=== PATIENT | male | born 1980 | race Caucasian/White ===

== ENCOUNTER 2017-02-16 06:45 | Emergency (ER) | payer OTHER ==
[~2017-02-16] VITALS: Ht 167.6 cm; Wt 65.8 kg
[~2017-02-16 06:45] MED LIST: CIPR250T2 PO; NO HOME MEDS; PERC7.5T12 PO
[2017-02-16 06:50] VITALS: BP 142/91
[2017-02-16] MEDS ORDERED: IBUPROFEN 800 MG TAB PO ONE (07:15)
[2017-02-16] MEDS ORDERED: PERC5TAB6 PO ×2 (07:30→07:32)
--- NOTE | 2017-02-16 08:00 | REP ---
Right shoulder three views : There is no fracture or dislocation. Mineralization and joint spaces are normal. There are no calcifications or foreign bodies. Impression: Negative right shoulder . Signed by Rodrick Morel MD 02/16/2017 07:52 A
== END 2017-02-16 08:00 | disposition home or self-care (01) ==
LOC: M ED 07:50
DX: S43.421A Sprain of right rotator cuff capsule, initial encounter (principal); X58.XXXA Exposure to other specified factors, initial encounter; Y92.89 Other specified places as the place of occurrence of the external cause; Y93.89 Activity, other specified; Y99.1 Military activity

== ENCOUNTER → 2018-01-17 | Outpatient (REF) | payer OTHER ==
[2018-01-17 12:53] LABS: HEMOGLOBIN 16.1 g/dl (14.0-18.0); MEAN CORPUSCULAR HEMOGLOBIN 30.9 pg (27.0-33.0); MEAN CORPUSCULAR VOLUME 88.3 fl (80.0-96.0); PLATELET COUNT, AUTOMATED 290 10^3/uL (150-450); RED BLOOD COUNT 5.21 10^6/uL (4.30-6.10); RED CELL DISTRIBUTION WIDTH 13.7 % (11.5-14.5); WHITE BLOOD COUNT 5.6 10^3/uL (4.0-10.0)
[2018-01-17 13:53] LABS: C REACTIVE PROTEIN QUANTITATIV < 0.30 MG/DL (0.00-0.30); RHEUMATOID FACTOR QUANT < 10.0 IU/ML (0-15.0)
[2018-01-17 13:53] LABS: URIC ACID 4.3 MG/DL (3.5-7.2)
[2018-01-17 18:59] LABS: ERYTHROCYTE SEDIMENTATION RATE 5 mm/hr (0-15)
[2018-01-18 14:14] LABS: ANTINUCLEAR ANTIBODIES DIRECT Negative (Negative)
== END ==
LOC: M LABDRAW1 12:02
DX: M79.641 Pain in right hand (principal)
CPT/HCPCS: 84550

== ENCOUNTER → 2018-02-08 | Outpatient (REF) | payer OTHER ==
[2018-02-08 12:10] LABS: BASO % 0.5 % (0.0-1.0); EOS # 0.3 10^3/uL (0.0-0.50); EOS % 4.4 % (0.0-3.0); HEMATOCRIT 46.6 % (42.0-52.0); HEMOGLOBIN 15.9 g/dl (14.0-18.0); IMMATURE GRANULOCYTE % 0.3 % (0-3.0); LYMPH % 32.3 % (24.0-44.0); MEAN CORPUSCULAR HEMOGLOBIN 30.5 pg (27.0-33.0); MEAN CORPUSCULAR HGB CONC 34.1 g/dl (32.0-36.5); MEAN CORPUSCULAR VOLUME 89.3 fl (80.0-96.0); MONO # 0.6 10^3/uL (0.0-0.8); MONO % 8.9 % (0.0-5.0); NEUTROPHILS # 3.3 10^3/uL (1.8-7.7); NEUTROPHILS % 53.6 % (36.0-66.0); PLATELET COUNT, AUTOMATED 250 10^3/uL (150-450); RED BLOOD COUNT 5.22 10^6/uL (4.30-6.10); RED CELL DISTRIBUTION WIDTH 13.5 % (11.5-14.5); WHITE BLOOD COUNT 6.2 10^3/uL (4.0-10.0)
[2018-02-08 12:45] LABS: ALBUMIN 4.3 GM/DL (3.2-5.2); ALBUMIN/GLOBULIN RATIO 1.59 (1.00-1.93); ALKALINE PHOSPHATASE 75 U/L (45-117); ALT/SGPT 22 U/L (12-78); ANION GAP 6 MEQ/L (8-16); AST/SGOT 17 U/L (7-37); BILIRUBIN,TOTAL 0.4 MG/DL (0.2-1.0); BLOOD UREA NITROGEN 14 MG/DL (7-18); CALCIUM LEVEL 8.7 MG/DL (8.5-10.1); CARBON DIOXIDE LEVEL 26 MEQ/L (21-32); CHLORIDE LEVEL 108 MEQ/L (98-107); CHOLESTEROL LEVEL 232 MG/DL (<200); CHOLESTEROL RISK RATIO 6.628 (<5); CREATININE FOR GFR 0.86 MG/DL (0.70-1.30); GLOMERULAR FILTRATION RATE > 60.0 (>60); GLUCOSE, FASTING 83 MG/DL (70-100); HDL CHOLESTEROL 35 MG/DL (>40); LDL CHOLESTEROL 163.2 MG/DL (<100); NON-HDL-C 197 MG/DL; POTASSIUM SERUM 4.3 MEQ/L (3.5-5.1); SODIUM LEVEL 140 MEQ/L (136-145); TRIGLYCERIDES LEVEL 169 MG/DL (<150)
== END ==
LOC: M LABDRAW1 11:45
DX: Z00.00 Encounter for general adult medical examination without abnormal findings (principal)
CPT/HCPCS: 80053

== ENCOUNTER 2019-05-19 20:11 | Emergency (ER) | payer OTHER ==
[~2019-05-19] VITALS: Ht 167.6 cm; Wt 63.6 kg
[~2019-05-19 20:11] MED LIST changes: +PERC5TAB12 PO
[2019-05-19 20:12] VITALS: BP 118/71
--- NOTE | 2019-05-20 04:01 | REP ---
Clinical: Trauma. Injury. Technique: AP, lateral, bilateral oblique views of the right foot. 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 No acute fracture dislocation. Skeletal structures, joint spaces, and surrounding soft tissues are otherwise normal. Impression: No acute fracture or dislocation. Electronically Signed by Rikki Velasquez MD 05/20/2019 03:53 A
== END 2019-05-19 20:59 | disposition home or self-care (01) ==
LOC: M ED 20:11
DX: S90.31XA Contusion of right foot, initial encounter (principal); W23.0XXA Caught, crushed, jammed, or pinched between moving objects, initial encounter; Y92.099 Unspecified place in other non-institutional residence as the place of occurrence of the external cause; Y93.9 Activity, unspecified; Y99.9 Unspecified external cause status

== ENCOUNTER 2020-06-11 07:48 | Emergency (ER) | payer OTHER ==
[2020-06-11] MEDS ORDERED: TETRACAINE 0.5% OPHTH SOLN 4ML As Ordered ONE (10:31)
[2020-06-11] MEDS ORDERED: FLUORESCEIN OPHTH 1 MG STRIP As Ordered ONE (10:31)
[2020-06-11] MEDS ORDERED: ERYTHROMYCIN OPHTH OINT As Ordered ONE (10:49)
== END 2020-06-11 11:11 | disposition home or self-care (01) ==
LOC: M ED 07:48
DX: T15.01XA Foreign body in cornea, right eye, initial encounter (principal); X58.XXXA Exposure to other specified factors, initial encounter; Y92.524 Gas station as the place of occurrence of the external cause; Y93.89 Activity, other specified; Y99.1 Military activity

== ENCOUNTER 2020-09-03 21:48 | Emergency (ER) | payer OTHER ==
[~2020-09-03] VITALS: Ht 167.6 cm; Wt 70.0 kg
[2020-09-03 21:49] VITALS: BP 124/73
[2020-09-03] MEDS ORDERED: TETRACAINE 0.5% OPHTH SOLN 4ML OD ONE (22:30)
[2020-09-03] MEDS ORDERED: ERYTHROMYCIN OPHTH OINT OD ONE (22:45)
[2020-09-03] MEDS ORDERED: ONDANSETRON 4 MG ORAL DISINTEGRATING TAB PO ONE (22:45)
[2020-09-03] MEDS ORDERED: BOOSTRIX/ADACEL VACCINE (DIPHTH/PERTUSS/ACELL/TETANUS) 0.5ML SYR IM ONE (22:45)
== END 2020-09-03 23:11 | disposition home or self-care (01) ==
LOC: M ED 21:48
DX: T15.01XA Foreign body in cornea, right eye, initial encounter (principal); F17.200 Nicotine dependence, unspecified, uncomplicated; Y92.9 Unspecified place or not applicable; Y93.9 Activity, unspecified; Y99.9 Unspecified external cause status
CPT/HCPCS: 65220; 90471; 90715; 99283; Q0162

== ENCOUNTER 2021-04-24 08:07 | Emergency (ER) | payer OTHER ==
[~2021-04-24] VITALS: Ht 167.6 cm; Wt 69.4 kg
--- NOTE | 2021-04-24 09:03 | REP ---
INDICATION: head injury/neck pain. COMPARISON: None. TECHNIQUE: Helical scanning is acquired. 5 mm axial images were reformatted. Coronal MPR images were generated. FINDINGS: Bone window settings demonstrate an intact bony calvarium. There is no evidence of skull fracture or incidental bony calvarial lesion. There are poly sinusitis changes with mucosal thickening observed in the sphenoid and ethmoid sinuses bilaterally as well as the left maxillary sinus. No intraorbital abnormality is seen. On soft tissue window setting images; the lateral, third, and fourth ventricles are normal in size and position. Sierra-white differentiation pattern is normal above and below the tentorium. There are is no evidence of intracranial hemorrhage. No mass, edema, infarction, or midline shift is seen. No extra-axial fluid collection is appreciated. IMPRESSION: Mucosal changes in the paranasal sinuses consistent with poly sinusitis. Otherwise negative head CT without contrast. There is no evidence of skull fracture or intracranial injury.. <Electronically signed by Ras Villanueva > 04/24/21 0852
--- NOTE | 2021-04-24 09:06 | REP ---
INDICATION: head injury/neck pain. COMPARISON: None. TECHNIQUE: Helical scanning is acquired and overlapping 2 mm high resolution axial images were generated and reviewed at bone and soft tissue window settings. Coronal and sagittal multiplanar re-formations images are generated. FINDINGS: There is no evidence of cervical spine element fracture. No skull base fracture is seen. Cervical vertebral body heights are preserved. Alignment is normal. Facet joints are normally aligned bilaterally at each cervical level on multiplanar re-formations images. There is no evidence of intraspinal or paraspinal hematoma. No extra vertebral abnormality is seen. There are osteoarthritic facet changes bilaterally. On the right these are most pronounced at C2-3 and on the left at C5-6. There are minimal degenerative disc changes at C2-3 and C3-4. No spinal stenosis or neural foraminal narrowing is seen. IMPRESSION: Mild degenerative spondylosis changes as above. Otherwise negative CT study of the cervical spine. No traumatic abnormality seen.. <Electronically signed by Ras Villanueva > 04/24/21 0902
[2021-04-24] MEDS ORDERED: LIDO5DIS41 TOP (09:43)
[2021-04-24] MEDS ORDERED: CYCL5TAB PO (09:43)
[2021-04-24 09:53] VITALS: BP 120/81
--- NOTE | 2021-04-25 08:33 | ED PDOC ---
Post-Departure Follow-Up radiology report faxed to pamela Carpio Sarah MD Apr 25, 2021 08:33
== END 2021-04-24 09:57 | disposition home or self-care (01) ==
LOC: M ED 08:07
DX: S16.1XXA Strain of muscle, fascia and tendon at neck level, initial encounter (principal); W22.8XXA Striking against or struck by other objects, initial encounter; Y92.89 Other specified places as the place of occurrence of the external cause; Y99.0 Civilian activity done for income or pay; J32.9 Chronic sinusitis, unspecified; F17.210 Nicotine dependence, cigarettes, uncomplicated

== ENCOUNTER 2021-09-09 03:54 | Emergency (ER) | payer OTHER ==
[~2021-09-09] VITALS: Ht 167.6 cm; Wt 70.5 kg
[~2021-09-09 03:54] MED LIST changes: +CYCL5TAB PO; +LIDO5DIS41 TOP
--- OUTSIDE RECORDS SUMMARY | 2021-09-09 04:00 | CCD ---
Author Author [facility] Organization [facility] Address Unknown Phone Unavailable Support Name Relationship Address Phone [facility] Next Of Kin [address] [place] [address] [facility] [address] Next Of [place] [address] [place] [address] [facility] Next Of Kin [address] [place] [id number] [place] Next Of Kin [address] [place] [address] [place] [address] [place] [address] Unavailable Re-disclosure Warning The records that you are about to access may contain information from federally-assisted alcohol or drug abuse programs. If such information is present, then the following federally mandated warning applies: This information has been disclosed to you from records protected by federal confidentiality rules (42 CFR part 2). The federal rules prohibit you from making any further disclosure of this information unless further disclosure is expressly permitted by the written consent of the person to whom it pertains or as otherwise permitted by 42 CFR part 2. A general authorization for the release of medical or other information is NOT sufficient for this purpose. The Federal rules restrict any use of the information to criminally investigate or prosecute any alcohol or drug abuse patient.The records that you are about to access may contain highly sensitive health information, the redisclosure of which is protected by Article 27-F of the [facility] Public Health law. If you continue you may have access to information: Regarding HIV / AIDS; Provided by facilities licensed or operated by the [facility] Office of Mental Health; or Provided by the [facility] Office for People With Developmental Disabilities. If such information is present, then the following [facility] mandated warning applies: This information has been disclosed to you from confidential records which are protected by state law. State law prohibits you from making any further disclosure of this information without the specific written consent of the person to whom it pertains, or as otherwise permitted by law. Any unauthorized further disclosure in violation of state law may result in a fine or group home sentence or both. A general authorization for the release of medical or other information is NOT sufficient authorization for further disc losure. Family History Family Member Name Family Member Gender Family Member Status Date o f Status Description Data Source(s) Unknown Male Problem [facility] ([facility]) Immunizations Vaccine Date Status Description Data Source(s) COVID-19 VACCINE Moderna 03/17/2021 12:00:00 AM EDT completed [facility] Vaccine Series Complete: YESThis Data wa s Submitted to [facility] Via [employer]. COVID-19 VACCINE Moderna 02/17/2021 12:00:00 AM EDT completed [facility] Vaccine Series Complete: NOThis Data was Submitted to [facility] Via [employer]. Medications Medication Brand Name Start Date Product Form Dose Route Admi nistrative Instructions Pharmacy Instructions Status Indications Reaction Description Data Source(s) 0.3 % 09/14/2020 12:00:00 AM EST drops 5 INSTILL 1 DROP INTO THE RIGHT EYE FOUR TIMES A DAY DIRECTED ALTERNATE WITH POLYTRIM INSTILL 1 DROP INTO THE RIGHT EYE FOUR TIMES A DAY DIRECTED ALTERNATE WITH POLYTRIM SOLD: 09/14/2020 [facility] 10,000 unit- 1 mg/mL 09/07/2020 12:00:00 AM EDT drops 10 INSTILL 1 DROP INTO RIGHT EYE EVERY 2 HOURS DIRECTED ALTERNATE WITH OCUFLOX INSTILL 1 DROP INTO RIGHT EYE EVERY 2 HOURS DIRECTED ALTERNATE WITH OCUFLOX SOLD: 09/07/2020 [facility] 0.3 % 09/07/2020 12:00:00 AM EDT drops 5 INSTILL 1 DROP INTO RIGHT EYE EVERY 2 HOURS DIRECTED ALTERNATE WITH POLYTRIM INSTILL 1 DROP INTO RIGHT EYE EVERY 2 HOURS DIRECTED ALTERNATE WITH POLYTRIM SOLD: 09/07/2020 [facility] Insurance Providers Payer name Policy type / Coverage type Policy ID Covered libertarian ID Covered libertarian's relationship to cooney Policy Cooney Plan Information [facility] INSURANCE [facility] [id number] SP [id number] [facility] [id number] SP [id number] [facility] [id number] SP [id number] [facility] ACTIVE DUTY [id number] SP [id number] ANSI-Commercial [id number] [facility] Commercial [id number] Self [id number] [facility] Commercial [id number] Self [id number] ACTIVE DUTY [id number] SP [id number] [facility] Commercial [id number] Self [id number] N [employer]AVITHA -O/P [id number] 18 [id number] ACTIVE DUTY [id number] SP [id number] Problems, Conditions, and Diagnoses No Information Surgeries/Procedures No Information Results ID Date Data Source [id number] 08/21/2020 12:00:00 AM EDT [facility] Name Value Range Interpretation Code Description Data Sun rce(s) Supporting Document(s) SARS-CoV2 [facility] and reported by [facility]. Procedure Social History No Information
[2021-09-09 05:53] VITALS: BP 131/70
--- OUTSIDE RECORDS SUMMARY | 2021-09-09 07:30 | CCD ---
Author Author [facility] Organization [facility] Address Unknown Phone Unavailable Support Name Relationship Address Phone [facility] Next Of Kin [address] [place] [address] [facility] [address] Next [place] Kin [address] [place] [address] [facility] [address] Of [address] [place] [id number] [place] Next Of Kin [address] [place] [address] [place] [address] [address] [place] [address] Unavailable Re-disclosure Warning The records that you [...] is protected by Article 27-F of the [facility] Public Health law. If you continue you may have access to information: Regarding HIV / AIDS; Provided by facilities licensed or operated by the [facility] Office of Mental Health; or Provided by the [facility] Office for People With Developmental Disabilities. If such information is present, then the following [facility] mandated warning applies: This information has been [...] law may result in a fine or fpc sentence or both. A general authorization for [...] Complete: YESThis Data wa s Submitted to [facility] Via [address]. COVID-19 VACCINE Moderna 02/17/2021 12:00:00 AM EDT completed [facility] Vaccine Series Complete: NOThis Data was Submitted to [facility] Via [address]. Medications Medication Brand Name Start Date Product [...] type / Coverage type Policy ID Covered democrat ID Covered democrat's relationship to cooney Policy Cooney Plan Information [facility] INSURANCE [facility] [id number] SP [id number] [facility] [id number] SP [id number] [facility] [id number] SP [id number] [facility] ACTIVE DUTY [id number] SP [id number] ANSI-Commercial [id number] [facility] Commercial [id number] [facility] Commercial [id number] Self [id number] ACTIVE DUTY [id number] SP [id number] [facility] Commercial [id number] Self [id number] N REGIONAL CLAIMS KAVITHA -O/P [id number] 18 [id number] ACTIVE DUTY [id number] SP [id number] Problems, Conditions, and Diagnoses No Information Surgeries/Procedures No Information Results ID Date Data Source [id number] 08/21/2020 12:00:00 AM EDT [facility] Name Value Range Interpretation Code Description Data Sun rce(s) Supporting Document(s) [facility] and reported by [facility]. Procedure Social History No Information
== END 2021-09-09 07:18 | disposition left against medical advice (07) ==
LOC: M ED 03:54
DX: Z53.29 Procedure and treatment not carried out because of patient's decision for other reasons (principal)

== ENCOUNTER → 2021-09-15 | Outpatient (REF) | payer OTHER | LOC: M LAB REF 11:39 | PROVIDERS: ATTEND Physician Assistant | DX: J02.9 Acute pharyngitis, unspecified (principal) ==

== ENCOUNTER → 2021-09-16 | Outpatient (REF) | payer OTHER | LOC: M LAB REF 11:20 | PROVIDERS: ATTEND Physician Assistant | DX: R50.9 Fever, unspecified (principal); R05.9 Cough, unspecified ==

== ENCOUNTER 2022-09-22 10:01 | Emergency (ER) | payer OTHER ==
[2022-09-22] MEDS ORDERED: LIDOCAINE 1% MDV 20ML VIAL SC ONE (11:15)
[2022-09-22] MEDS ORDERED: NEOSPORIN OINT 0.9 GM PKT TOP ONE (11:15)
[2022-09-22] MEDS ORDERED: CEPHALEXIN 500 MG CAP PO ONE (11:15)
[2022-09-22] MEDS ORDERED: CEPH500C PO (11:59)
[2022-09-22 12:12] VITALS: BP 122/84
== END 2022-09-22 12:15 | disposition home or self-care (01) ==
LOC: M ED 10:01
DX: S61.012A Laceration without foreign body of left thumb without damage to nail, initial encounter (principal); W22.8XXA Striking against or struck by other objects, initial encounter; Y99.0 Civilian activity done for income or pay; M54.9 Dorsalgia, unspecified; Z87.442 Personal history of urinary calculi; F17.200 Nicotine dependence, unspecified, uncomplicated

== ENCOUNTER 2022-09-28 23:11 | Emergency (ER) | payer OTHER ==
[~2022-09-28] VITALS: Ht 167.6 cm; Wt 71.3 kg
[~2022-09-28 23:11] MED LIST changes: +CEPH500C PO
[2022-09-28 23:16] VITALS: BP 131/83
[2022-09-30] MEDS ORDERED: DOXY100C3 PO (15:49)
== END 2022-09-29 01:30 | disposition left against medical advice (07) ==
LOC: M ED 23:11
DX: Z53.21 Procedure and treatment not carried out due to patient leaving prior to being seen by health care provider (principal)

== ENCOUNTER 2022-09-30 15:43 | Inpatient (IN) | payer OTHER ==
[~2022-09-30] VITALS: Ht 167.6 cm; Wt 70.9 kg
[2022-09-30] MEDS ORDERED: DOXY100C3 PO (15:49)
[2022-09-30] MEDS ORDERED: VANCOMYCIN HCL 1,500 MG in NS 250 ML IV ONE (18:50)
[2022-09-30] MEDS ORDERED: VANCOMYCIN HCL 750 MG, VIAL MATE ADAPTER 1 EACH in D5W 250 ML IV ONE ×2 (19:00→20:00)
[2022-09-30 19:23] LABS: BASO % 0.3 % (0.0-1.0); EOS # 0.1 10^3/uL (0.0-0.5); EOS % 0.5 % (0.0-3.0); HEMATOCRIT 44.5 % (42.0-52.0); HEMOGLOBIN 15.5 g/dl (13.5-17.5); LYMPH # 2.7 10^3/uL (1.5-5.0); LYMPH % 19.4 % (24.0-44.0); MEAN CORPUSCULAR HGB CONC 34.8 g/dl (32.0-36.5); MONO # 0.9 10^3/uL (0.0-0.8); MONO % 6.4 % (2.0-8.0); NEUTROPHILS # 10.2 10^3/uL (1.5-8.5); NEUTROPHILS % 73.1 % (36.0-66.0); PLATELET COUNT, AUTOMATED 287 10^3/uL (150-450)
[2022-09-30] MEDS ORDERED: traMADol 50 MG TAB PO PRN (19:25)
[2022-09-30] MEDS ORDERED: ACETAMINOPHEN TAB 650MG DOSE (2X325MG) PO PRN (19:25)
[2022-09-30] MEDS ORDERED: HOME MED LIST COMPLETE! XX SCH (19:35)
[2022-09-30] MEDS ORDERED: LR 500 ML IV ONE (19:35)
[2022-09-30 19:43] LABS: ERYTHROCYTE SEDIMENTATION RATE 5 mm/hr (0-15)
[2022-09-30] MEDS ORDERED: PROHANCE 279.3MG/ML 15ML VIAL As Ordered ONE (19:49)
[2022-09-30 19:58] LABS: BLOOD UREA NITROGEN 13 MG/DL (9-23); CALCIUM LEVEL 9.7 MG/DL (8.5-10.1); CARBON DIOXIDE LEVEL 27 MMOL/L (20-31); CHLORIDE LEVEL 103 MMOL/L (98-107); CREATININE FOR GFR 0.81 MG/DL (0.70-1.30); GLOMERULAR FILTRATION RATE > 60.0 (>60); GLUCOSE, FASTING 83 MG/DL (60-100); POTASSIUM SERUM 4.3 MMOL/L (3.5-5.1); SODIUM LEVEL 138 MMOL/L (136-145)
[2022-09-30] MEDS: NICOTINE POLACRILEX 2 MG GUM PO PRN (20:48)
[2022-09-30] MEDS: LR 1,000 ML IV SCH (22:07)
[2022-10-01] MEDS ORDERED: UNRESOLVED CLARIFICATION ENTRY XX STA (00:14)
[2022-10-01] MEDS: LR 1,000 ML IV SCH ×2 (04:55→17:36)
[2022-10-01] MEDS: VANCOMYCIN HCL 1,000 MG, VIAL MATE ADAPTER 1 EACH in D5W 250 ML IV SCH ×3 (04:55→20:18)
[2022-10-01 09:10] LABS: HEMATOCRIT 40.3 % (42.0-52.0); HEMOGLOBIN 13.6 g/dl (13.5-17.5); MEAN CORPUSCULAR HEMOGLOBIN 30.8 pg (27.0-33.0); MEAN CORPUSCULAR HGB CONC 33.7 g/dl (32.0-36.5); MEAN CORPUSCULAR VOLUME 91.2 fl (80.0-96.0); PLATELET COUNT, AUTOMATED 245 10^3/uL (150-450); RED BLOOD COUNT 4.42 10^6/uL (4.30-6.10)
[2022-10-01 09:18] LABS: INR 0.98; PROTHROMBIN TIME 13.2 SECONDS (12.5-14.5)
[2022-10-01 09:19] LABS: PARTIAL THROMBOPLASTIN TIME 30.5 SECONDS (24.8-34.2)
[2022-10-01 09:25] LABS: ALBUMIN 3.5 G/DL (3.2-5.2); ALT/SGPT 14 U/L (7.0-40); BILIRUBIN,TOTAL 0.7 MG/DL (0.3-1.2); BLOOD UREA NITROGEN 11 MG/DL (9-23); CALCIUM LEVEL 8.6 MG/DL (8.5-10.1); CARBON DIOXIDE LEVEL 27 MMOL/L (20-31); CHLORIDE LEVEL 107 MMOL/L (98-107); CREATININE FOR GFR 0.76 MG/DL (0.70-1.30); GLOMERULAR FILTRATION RATE > 60.0 (>60); GLUCOSE, FASTING 92 MG/DL (60-100); MAGNESIUM LEVEL 1.8 MG/DL (1.8-2.4); POTASSIUM SERUM 3.9 MMOL/L (3.5-5.1); SODIUM LEVEL 141 MMOL/L (136-145); TOTAL PROTEIN 5.7 G/DL (5.7-8.2)
[2022-10-01 09:30] LABS: ERYTHROCYTE SEDIMENTATION RATE 7 mm/hr (0-15)
[2022-10-01] MEDS: NICOTINE POLACRILEX 2 MG GUM PO PRN ×2 (12:27→15:21)
[2022-10-01 14:00] VITALS: BP 110/67
[2022-10-01 20:30] VITALS: BP 104/66
[2022-10-01] MEDS ORDERED: VANCOMYCIN HCL 500 MG in D5W MINI-BAG PLUS 100 ML IV ONE (23:00)
[2022-10-02] MEDS ORDERED: VANCOMYCIN HCL 750 MG, VIAL MATE ADAPTER 1 EACH in D5W 250 ML IV SCH (05:00)
[2022-10-02 05:39] VITALS: BP 107/69
[2022-10-02] MEDS: LR 1,000 ML IV SCH (05:59)
[2022-10-02] MEDS ORDERED: VANCOMYCIN HCL 500 MG in D5W MINI-BAG PLUS 100 ML IV SCH (06:00)
[2022-10-02] MEDS ORDERED: LIDOCAINE 1% MDV 20ML VIAL As Ordered ONE (08:38)
[2022-10-02] MEDS ORDERED: BUPIVACAINE HCL 0.25% 10ML VIAL As Ordered ONE (08:39)
[2022-10-02] MEDS ORDERED: propofoL 200 MG/20 ML VIAL As Ordered ONE (09:36)
[2022-10-02] MEDS ORDERED: LIDOCAINE 2% 100MG/5ML SDV (FOR ANES.) As Ordered ONE (09:36)
[2022-10-02] MEDS ORDERED: dexameTHASONE 4 MG/ML 1ML VIAL (J1100 PER 1MG) As Ordered ONE (09:36)
[2022-10-02] MEDS ORDERED: KETOROLAC 60MG 2ML VIAL As Ordered ONE (09:36)
[2022-10-02] MEDS ORDERED: fentaNYL 250 MCG/5 ML INJECTION As Ordered ONE (09:36)
[2022-10-02] MEDS ORDERED: ONDANSETRON 4MG 2ML VIAL As Ordered ONE (09:36)
[2022-10-02] MEDS ORDERED: MIDAZOLAM INJ 2MG/2ML VIAL (J2250 PER 1MG) As Ordered ONE (09:36)
[2022-10-02] MEDS ORDERED: ACETAMINOPHEN 1000MG 100ML IV BAG As Ordered ONE (09:36)
[2022-10-02] MEDS ORDERED: ePHEDrine SULFATE 25 MG/5 ML(5MG/ML) SYRINGE As Ordered ONE (09:53)
[2022-10-02] MEDS ORDERED: BACITRACIN OINTMENT 30GM TUBE As Ordered ONE (09:57)
[2022-10-02] MEDS ORDERED: oxyCODONE 5MG TAB PO PRN (10:20)
[2022-10-02] MEDS ORDERED: fentaNYL 100 MCG/2 ML INJECTION IV PRN (10:20)
[2022-10-02] MEDS ORDERED: HYDROMORPHONE HCL 0.5 MG/ 0.5 ML SYRINGE (J1170 PER 1) IV PRN (10:20)
[2022-10-02] MEDS ORDERED: LR 1,000 ML IV SCH (10:20)
[2022-10-02] MEDS ORDERED: ONDANSETRON 4MG 2ML VIAL IV PRN (10:20)
[2022-10-02] MEDS ORDERED: CEPH500C PO (11:21)
[2022-10-02 11:35] VITALS: BP 109/69
[2022-10-02 12:30] VITALS: BP 125/82
== END 2022-10-02 12:55 | disposition home or self-care (01) | DRG 514 ==
LOC: M ED 15:43 → M ED INP 19:24 → ENRESERV 10-01 10:00 → M MS5PR 10-01 10:35
PROVIDERS: ADMIT Internal Medicine; ATTEND Family Medicine
PROC: 0LQ80ZZ Repair Left Hand Tendon, Open Approach (ICD-10-PCS; principal; 2022-10-02 11:00)
DX: S66.422A Laceration of intrinsic muscle, fascia and tendon of left thumb at wrist and hand level, initial encounter (principal); L03.012 Cellulitis of left finger; F17.200 Nicotine dependence, unspecified, uncomplicated; W29.3XXA Contact with powered garden and outdoor hand tools and machinery, initial encounter; Y92.9 Unspecified place or not applicable; Y93.9 Activity, unspecified; Y99.9 Unspecified external cause status

== ENCOUNTER 2022-12-10 22:47 | Emergency (ER) | payer OTHER ==
[~2022-12-10] VITALS: Ht 167.6 cm; Wt 68.2 kg
[~2022-12-10 22:47] MED LIST changes: +DOXY100C3 PO
[2022-12-10 22:50] VITALS: BP 122/79
== END 2022-12-11 03:51 | disposition left against medical advice (07) ==
LOC: M ED 22:47
DX: Z53.21 Procedure and treatment not carried out due to patient leaving prior to being seen by health care provider (principal)

== ENCOUNTER → 2022-12-12 | Outpatient (REF) | payer OTHER ==
[2022-12-12 14:24] LABS: BASO % 0.6 % (0.0-1.0); EOS # 0.4 10^3/uL (0.0-0.5); EOS % 5.6 % (0.0-3.0); HEMATOCRIT 46.6 % (42.0-52.0); HEMOGLOBIN 15.3 g/dl (13.5-17.5); LYMPH # 1.8 10^3/uL (1.5-5.0); LYMPH % 29.4 % (24.0-44.0); MEAN CORPUSCULAR HEMOGLOBIN 30.5 pg (27.0-33.0); MEAN CORPUSCULAR HGB CONC 32.8 g/dl (32.0-36.5); MEAN CORPUSCULAR VOLUME 92.8 fl (80.0-96.0); MONO # 0.6 10^3/uL (0.0-0.8); MONO % 9.1 % (2.0-8.0); NEUTROPHILS # 3.4 10^3/uL (1.5-8.5); NEUTROPHILS % 55.1 % (36.0-66.0); PLATELET COUNT, AUTOMATED 274 10^3/uL (150-450); RED BLOOD COUNT 5.02 10^6/uL (4.30-6.10); WHITE BLOOD COUNT 6.3 10^3/uL (4.0-10.0)
[2022-12-12 14:31] LABS: ALBUMIN 3.9 G/DL (3.2-5.2); ALKALINE PHOSPHATASE 73 U/L (46-116); ALT/SGPT 20 U/L (7.0-40); AST/SGOT 16 U/L (<34); BILIRUBIN,TOTAL 0.3 MG/DL (0.3-1.2); BLOOD UREA NITROGEN 12 MG/DL (9-23); CARBON DIOXIDE LEVEL 28 MMOL/L (20-31); CHLORIDE LEVEL 108 MMOL/L (98-107); CHOLESTEROL LEVEL 211 MG/DL (<200); CHOLESTEROL RISK RATIO 5.58 (<5); CREATININE FOR GFR 0.84 MG/DL (0.70-1.30); GLOMERULAR FILTRATION RATE > 60.0 (>60); GLUCOSE, FASTING 92 MG/DL (60-100); HDL CHOLESTEROL 37.8 MG/DL (>40); LDL CHOLESTEROL 148.6 MG/DL (<100); NON-HDL-C 173 MG/DL; POTASSIUM SERUM 4.7 MMOL/L (3.5-5.1); SODIUM LEVEL 142 MMOL/L (136-145); TOTAL PROTEIN 6.5 G/DL (5.7-8.2); TRIGLYCERIDES LEVEL 123 MG/DL (<150)
[2022-12-12 14:33] LABS: HEMOGLOBIN A1c 4.9 % (4.0-6.0); TOTAL 25(OH) VITAMIN D 16.8 NG/ML (20.0-100.0)
[2022-12-12 14:34] LABS: THYROID STIMULATING HORMONE 1.378 uIU/ML (0.55-4.78)
[2022-12-12 14:35] LABS: FREE T4 1.05 NG/DL (0.89-1.76)
== END ==
LOC: M LAB REF 12:28
PROVIDERS: ATTEND Nurse Practitioner Family
DX: Z13.228 Encounter for screening for other metabolic disorders (principal)

== ENCOUNTER → 2023-01-24 | Outpatient (CLI) | payer OTHER | LOC: M PLAIMG 09:06 | PROVIDERS: ATTEND Nurse Practitioner Family | DX: Z13.6 Encounter for screening for cardiovascular disorders (principal); Z87.891 Personal history of nicotine dependence; Z82.49 Family history of ischemic heart disease and other diseases of the circulatory system ==

== ENCOUNTER → 2023-01-24 | Outpatient (CLI) | payer OTHER | LOC: M RAD 07:40 | PROVIDERS: ATTEND Nurse Practitioner Family | DX: Z82.49 Family history of ischemic heart disease and other diseases of the circulatory system (principal); Z87.891 Personal history of nicotine dependence ==

== ENCOUNTER → 2023-02-16 | Outpatient (REF) | payer OTHER ==
[2023-02-16 14:41] LABS: ALBUMIN 3.8 G/DL (3.2-5.2); ALKALINE PHOSPHATASE 66 U/L (46-116); ALT/SGPT 21 U/L (7.0-40); AST/SGOT 17 U/L (<34); BILIRUBIN,TOTAL 0.3 MG/DL (0.3-1.2); BLOOD UREA NITROGEN 12 MG/DL (9-23); CALCIUM LEVEL 8.8 MG/DL (8.5-10.1); CARBON DIOXIDE LEVEL 27 MMOL/L (20-31); CHLORIDE LEVEL 106 MMOL/L (98-107); CREATININE FOR GFR 0.87 MG/DL (0.70-1.30); GLOMERULAR FILTRATION RATE > 60.0 (>60); GLUCOSE, FASTING 104 MG/DL (60-100); POTASSIUM SERUM 4.3 MMOL/L (3.5-5.1); SODIUM LEVEL 139 MMOL/L (136-145); TOTAL PROTEIN 6.2 G/DL (5.7-8.2)
== END ==
LOC: M LAB REF 12:01
PROVIDERS: ATTEND Nurse Practitioner Family
DX: E78.2 Mixed hyperlipidemia (principal)

== ENCOUNTER 2023-05-18 06:15 | Emergency (ER) | payer OTHER ==
[~2023-05-18] VITALS: Ht 167.6 cm; Wt 67.2 kg
[2023-05-18] MEDS ORDERED: DOXYCYCLINE HYCLATE 100MG TABLET PO ONE (08:10)
[2023-05-18] MEDS ORDERED: KETOROLAC 60MG 2ML VIAL IM ONE (08:10)
[2023-05-18] MEDS ORDERED: DOXY-443 PO (08:22)
[2023-05-18] MEDS ORDERED: TRAM50TA2 PO (08:22)
[2023-05-18 08:35] VITALS: BP 121/78; TEMP 98.1; O2SAT 99
== END 2023-05-18 08:53 | disposition home or self-care (01) ==
LOC: M ED 06:15
DX: L03.317 Cellulitis of buttock (principal); F17.200 Nicotine dependence, unspecified, uncomplicated; Z87.442 Personal history of urinary calculi; Z79.899 Other long term (current) drug therapy
CPT/HCPCS: 96372; 99283; J1885

== ENCOUNTER 2024-07-26 15:42 | Emergency (ER) | payer OTHER ==
[~2024-07-26] VITALS: Ht 167.6 cm; Wt 67.5 kg
[~2024-07-26 15:42] MED LIST changes: +DOXY-323 PO; +TRAM50TA2 PO
[2024-07-26] MEDS: KETOROLAC 60MG 2ML VIAL IM ONE (18:58)
[2024-07-26] MEDS: LIDOCAINE 5% (LIDODERM) PATCH TD ONE (18:59)
[2024-07-26] MEDS ORDERED: METH-1164 PO (19:20)
[2024-07-26] MEDS ORDERED: LIDO5DIS41 TD (19:20)
[2024-07-26] MEDS ORDERED: NAPR-837 PO (19:20)
[2024-07-26 19:31] VITALS: BP 125/83; TEMP 97; O2SAT 99
== END 2024-07-26 19:39 | disposition home or self-care (01) ==
LOC: M ED 15:42
DX: S16.1XXA Strain of muscle, fascia and tendon at neck level, initial encounter (principal); Y92.9 Unspecified place or not applicable; Y93.9 Activity, unspecified; Y99.9 Unspecified external cause status; Z79.899 Other long term (current) drug therapy
CPT/HCPCS: 96372; 99283; J1885

== ENCOUNTER → 2024-09-12 | Outpatient (REF) | payer OTHER ==
[~2024-09-12] MED LIST changes: -DOXY-323 PO; +DOXY-441 PO; +LIDO5DIS41 TD; +METH-1164 PO; +NAPR-837 PO
[2024-09-12 12:34] LABS: ALBUMIN 3.7 G/DL (3.2-5.2); ALKALINE PHOSPHATASE 79 U/L (40-129); ALT/SGPT 20 U/L (7.0-40); AST/SGOT 10 U/L (<34); BILIRUBIN,TOTAL 0.4 MG/DL (0.3-1.2); BLOOD UREA NITROGEN 13 MG/DL (9-23); CALCIUM LEVEL 9.6 MG/DL (8.5-10.1); CARBON DIOXIDE LEVEL 28 MMOL/L (20-31); CHLORIDE LEVEL 109 MMOL/L (98-107); CHOLESTEROL LEVEL 229 MG/DL (<200); CHOLESTEROL RISK RATIO 5.53 (<5); CREATININE FOR GFR 0.85 MG/DL (0.70-1.30); GLOMERULAR FILTRATION RATE > 60.0 (>60); GLUCOSE, FASTING 91 MG/DL (60-100); HDL CHOLESTEROL 41.4 MG/DL (>40); LDL CHOLESTEROL 156.4 MG/DL (<100); NON-HDL-C 187.6 MG/DL; POTASSIUM SERUM 4.7 MMOL/L (3.5-5.1); SODIUM LEVEL 139 MMOL/L (136-145); TOTAL PROTEIN 7.1 G/DL (5.7-8.2); TRIGLYCERIDES LEVEL 156 MG/DL (<150)
== END ==
LOC: M LAB REF 12:00
PROVIDERS: ATTEND Nurse Practitioner Family
DX: E78.2 Mixed hyperlipidemia (principal)

== ENCOUNTER 2025-02-17 08:01 | Emergency (ER) | payer OTHER ==
[~2025-02-17] VITALS: Ht 167.6 cm; Wt 68.2 kg
[~2025-02-17 08:01] MED LIST changes: -CYCL5TAB PO; +CYCL5TAB4 PO
[2025-02-17 09:03] LABS: BASO % 0.5 % (0.0-1.0); EOS # 0.1 10^3/uL (0.0-0.5); EOS % 2.1 % (0.0-3.0); LYMPH # 1.6 10^3/uL (1.5-5.0); LYMPH % 25.7 % (24.0-44.0); MEAN CORPUSCULAR HEMOGLOBIN 30.6 pg (27.0-33.0); MEAN CORPUSCULAR VOLUME 89.9 fl (80.0-96.0); MONO # 0.5 10^3/uL (0.0-0.8); MONO % 7.2 % (2.0-8.0); NEUTROPHILS % 64.3 % (36.0-66.0); PLATELET COUNT, AUTOMATED 260 10^3/uL (150-450); RED BLOOD COUNT 5.23 10^6/uL (4.30-6.10); WHITE BLOOD COUNT 6.2 10^3/uL (4.0-10.0)
[2025-02-17] MEDS: PANTOPRAZOLE 40MG VIAL IV ONE (09:14)
[2025-02-17] MEDS: ASPIRIN 81MG CHEW TABLET PO ONE (09:14)
[2025-02-17 09:19] LABS: INR 0.87; PROTHROMBIN TIME 12.2 SECONDS (12.5-14.5)
[2025-02-17 09:24] LABS: CK-MB VALUE MASS 1.2 NG/ML (<3.6); LIPASE 25 U/L (12-53)
[2025-02-17 09:26] LABS: ALBUMIN 3.9 G/DL (3.2-5.2); ALKALINE PHOSPHATASE 67 U/L (40-129); ALT/SGPT 24 U/L (7.0-40); AST/SGOT 17 U/L (<34); BILIRUBIN,DIRECT < 0.1 MG/DL (<0.4); BILIRUBIN,TOTAL 0.4 MG/DL (0.3-1.2); CPK CREATINE PHOSPHOKINASE 89 U/L (46-171); MB/CK RELATIVE INDEX 1.34 (< OR =4); TOTAL PROTEIN 6.8 G/DL (5.7-8.2)
[2025-02-17 09:48] LABS: BLOOD UREA NITROGEN 10 MG/DL (9-23); CARBON DIOXIDE LEVEL 30 MMOL/L (20-31); CHLORIDE LEVEL 104 MMOL/L (98-107); CREATININE FOR GFR 0.87 MG/DL (0.70-1.30); GLOMERULAR FILTRATION RATE > 60.0 (>60); GLUCOSE, FASTING 90 MG/DL (60-100); POTASSIUM SERUM 4.6 MMOL/L (3.5-5.1); SODIUM LEVEL 143 MMOL/L (136-145)
[2025-02-17] MEDS ORDERED: ISOVUE-370 76% 100ML VIAL As Ordered ONE (10:03)
[2025-02-17 10:31] LABS: CK-MB VALUE MASS < 1.0 NG/ML (<3.6)
[2025-02-17 10:32] LABS: CPK CREATINE PHOSPHOKINASE 81 U/L (46-171); MB/CK RELATIVE INDEX 1.23 (< OR =4)
[2025-02-17] MEDS: NITROGLYCERIN 0.4MG SUBL TABLET SL PRN (10:35)
[2025-02-17 10:45] VITALS: BP 103/61
[2025-02-17 12:15] VITALS: TEMP 96.8
[2025-02-17] MEDS ORDERED: HEPARIN DRIP 25,000 UNITS in IV 1 EA IV SCH (12:50)
[2025-02-17] MEDS ORDERED: HEPARIN SOD (PORCINE) 5000UNITS/ML 1ML VIAL/SYRINGE IV PRN (12:50)
[2025-02-17] MEDS: HEPARIN SOD (PORCINE) 5000UNITS/ML 1ML VIAL/SYRINGE IV ONE (13:19)
[2025-02-17] MEDS ORDERED: HOME MED LIST COMPLETE! XX SCH (13:35)
[2025-02-17 15:00] VITALS: BP 117/77; O2SAT 98
== END 2025-02-17 15:05 | disposition short-term general hospital (02) ==
LOC: M ED 08:01
DX: I21.4 Non-ST elevation (NSTEMI) myocardial infarction (principal); R91.1 Solitary pulmonary nodule; R00.1 Bradycardia, unspecified; F17.210 Nicotine dependence, cigarettes, uncomplicated
CPT/HCPCS: 71045; 71275; 80047; 80048; 80076; 82550; 82553; 83690; 84484; 85025; 85610; 85730; 93005; 93041; 94760; 96374; 96375; 99285; J2470; Q9967

== ENCOUNTER → 2025-03-18 | Outpatient (CLI) | payer OTHER | LOC: M PLARAD 14:05 | PROVIDERS: ATTEND Nurse Practitioner Family | DX: R91.1 Solitary pulmonary nodule (principal) | CPT/HCPCS: 78815; A9552 ==

== ENCOUNTER → 2025-06-12 | Outpatient (CLI) | payer OTHER ==
[~2025-06-12] MED LIST changes: +LIDO1ADH93 TD; +LIDO1ADH93 TOP; -LIDO5DIS41 TD; -LIDO5DIS41 TOP
== END ==
LOC: M PLAIMG 06:46
PROVIDERS: ATTEND Internal Medicine Pulmonary Disease
DX: R91.1 Solitary pulmonary nodule (principal)

== ENCOUNTER → 2025-09-29 | Outpatient (REF) | payer OTHER ==
[2025-09-29 14:58] LABS: PSA SCREENING 0.49 NG/ML (< 4.00)
== END ==
LOC: M LAB REF 12:04
PROVIDERS: ATTEND Nurse Practitioner Family
DX: Z12.5 Encounter for screening for malignant neoplasm of prostate (principal); Z68.24 Body mass index [BMI] 24.0-24.9, adult
CPT/HCPCS: 84443; G0103